=== PATIENT | female | born 1980 | race African-American/Black ===

== ENCOUNTER 2016-08-30 02:31 | Emergency (ER) | payer BC ==
[~2016-08-30] VITALS: Ht 162.6 cm; Wt 106.6 kg
[~2016-08-30 02:31] MED LIST: DROS1TAB PO
[2016-08-30 03:21] LABS: BILIRUBIN,URINE NEGATIVE (NEG); GLUCOSE,URINE NEGATIVE (NEG); NITRITE,URINE NEGATIVE (NEG); PROTEIN,URINE 30 mg/dL (NEG-TRACE)
[2016-08-30 03:43] LABS: BASO % 0 % (0-3); EOS % 0 % (0-3); HEMATOCRIT 36.4 % (36.0-47.0); LYMPH # 1.3 x10^3/uL (1.0-4.8); LYMPH % 10 % (24-48); MEAN CORPUSCULAR HEMOGLOBIN 28 pg (25-35); MEAN CORPUSCULAR HGB CONC 33 g/dL (31-37); MEAN CORPUSCULAR VOLUME 83 fL (79-100); MONO % 5 % (0-9); NEUT % 84 % (31-73); PLATELET COUNT 314 x10^3/uL (140-400); RED BLOOD COUNT 4.36 x10^6/uL (3.50-5.40); RED CELL DISTRIBUTION WIDTH 13.8 % (11.5-14.5); WHITE BLOOD COUNT 12.4 x10^3/uL (4.0-11.0)
[2016-08-30 03:45] LABS: BACTERIA,URINE MANY /HPF (0-FEW); RBC,URINE TNTC /HPF (0-2); SQUAMOUS EPITHELIAL CELL,UR MANY /LPF; WBC,URINE >40 /HPF (0-4)
[2016-08-30 03:49] LABS: GFR 76.3; POTASSIUM 3.5 mmol/L (3.5-5.1)
[2016-08-30 03:55] LABS: ALBUMIN 2.8 g/dL (3.4-5.0); DIRECT BILIRUBIN 0.1 mg/dL (0.0-0.2); TOTAL BILIRUBIN 0.4 mg/dL (0.2-1.0); TOTAL PROTEIN 8.4 g/dL (6.4-8.2)
[2016-08-30] MEDS ORDERED: IBUP200T77 PO (03:55)
[2016-08-30] MEDS ORDERED: ONDA4TAB10 SL (03:55)
[2016-08-30] MEDS ORDERED: OSEL75CA PO (03:55)
--- NOTE | 2016-08-30 03:57 | PHYS DOC ---
Past Medical History Past Medical History: No Pertinent History Past Surgical History: Tubal ligation Additional Past Surgical Histo: breast augmentation. Alcohol Use: Occasionally Drug Use: None Adult General Chief Complaint Chief Complaint: NEAR SYNCOPE HPI HPI 35-year-old female presenting to the emergency department today with sore throat runny nose and cough muscle aches. She also feels lightheaded. This is been present for approximately 24-48 hours. Today she stood up and felt lightheaded. She denies actually losing consciousness. She describes this as "passed out." Otherwise she denies abdominal pain nausea vomiting. Review of systems is negative for chest pain shortness of breath. Positive for cough fevers runny nose and muscle aches. All other review of systems is negative unless otherwise noted in history of present illness. Review of Systems Review of Systems SEE ABOVE. Allergies Allergies Allergies Coded Allergies Type Severity Reaction Last Updated Verified No Known Drug Allergies 07/22/13 No Physical Exam Physical Exam Constitutional: Well developed, well nourished, no acute distress, non-toxic appearance. Well-appearing individual. HENT: Normocephalic, atraumatic, bilateral external ears normal, oropharynx moist, no oral exudates, nose normal. [] Eyes: PERRLA, EOMI, conjunctiva normal, no discharge. Neck: Normal range of motion, no tenderness, supple, no stridor. [] Cardiovascular:Heart rate regular rhythm, no murmur [] Lungs & Thorax: Bilateral breath sounds clear to auscultation . Clear to auscultation bilaterally. Abdomen: Bowel sounds normal, soft, no tenderness, no masses, no pulsatile masses. [] Skin: Warm, dry, no erythema, no rash. Back: No tenderness, no CVA tenderness. [] Extremities: No tenderness, no cyanosis, no clubbing, ROM intact, no edema. Neurologic: Alert and oriented X 3, normal motor function, normal sensory function, no focal deficits noted. [] Psychologic: Affect normal, judgement normal, mood normal. [] Current Patient Data Vital Signs Vital Signs Date Time Temp Pulse Resp B/P Pulse Ox O2 Delivery O2 Flow Rate FiO2 08/30/16 03:15 99.9 109 20 138/76 95 Room Air 99.9 Lab Values Laboratory Tests Test 08/30/16 03:00 08/30/16 03:18 Urine Collection Type Unknown Urine Color Alexandrea Urine Clarity Cloudy Urine pH 6.0 Urine Specific [place] 1.025 Urine Protein 30mg/dL (NEG-TRACE) Urine Glucose (UA) Negativemg/dL (NEG) Urine Ketones (Stick) 15mg/dL (NEG) Urine Blood Large (NEG) Urine Nitrite Negative (NEG) Urine Bilirubin Negative (NEG) Urine Urobilinogen Dipstick 1.0mg/dL (0.2 mg/dL) Urine Leukocyte Esterase Small (NEG) Urine RBC Tntc/HPF (0-2) Urine WBC >40/HPF (0-4) Urine Squamous Epithelial Cells Many/LPF Urine Bacteria Many/HPF (0-FEW) Urine Hyaline Casts Few/HPF POC Urine HCG, Qualitative Hcg negative (Negative) EKG EKG EKG shows sinus rhythm with a mildly tachycardic rate. Normal intervals. Normal axis. ST segments are congruent. Not suggestive of ACS. Reviewed by myself.[] Radiology/Procedures Radiology/Procedures Chest x-ray reviewed by myself shows no obvious infiltrate or pneumothorax present. No obvious acute cardiopulmonary process present.[] Course & Med Decision Making Course & Med Decision Making Pertinent Labs and Imaging studies reviewed. (See chart for details) [] 35-year-old female presenting with cough runny nose muscle aches fevers chills. Temperature mildly elevated with mild tachycardia. Pertinent physical exam findings showed normal lungs on auscultation. Otherwise well-appearing individual. EKG unremarkable. Chest x-ray not suggestive of pneumonia. Leukocytosis on blood work. Urinalysis contaminated. Negative nitrates. We'll follow culture. Chemistry panel otherwise unremarkable. Urine test negative. The patient's clinical symptoms and presentation were suggestive of influenza virus. Given her symptoms started less than 48 hours ago offered treatment. Patient was subsequent discharged home with Tamiflu and ibuprofen to follow-up with her primary care doctor over the next 3-4 days if her symptoms did not improve. Dragon Disclaimer Dragon Disclaimer This electronic medical record was generated, in whole or in part, using a voice recognition dictation system. Departure Departure Impression: Primary Impression: Pre-syncope Additional Impression: Influenza Disposition: HOME, SELF-CARE Condition: STABLE Referrals: UNKNOWN PCP NAME (PCP) HODAN OJEDA MD Patient Instructions: Dizziness, Influenza, Adult Additional Instructions: Thank you for allowing us to participate in your care today. Followup with your primary care physician in 3 days if your symptoms do not improve. If you do not have a primary care provider you can ask for a list of our primary care providers. Return to the emergency department you have any new or concerning findings. This should be evaluated by the primary care physician and any necessary consulting services for continued management within a few days after discharge. Return to emergency room if you have any new or concerning symptoms including but not limited to fever, chills, nausea, vomiting, intractable pain, any new rashes, chest pain, shortness of air, uncontrolled bleeding, difficulty breathing, and/or vision loss. Scripts Ondansetron (Zofran Odt)4 Mg Tab.rapdis1 Tab SL PRN Q8HRS PRN NAUSEA #6 TAB Prov:SULY HODGSON MD 08/30/16 Ibuprofen 200 Mg [id number] Mg PO PRN Q6HRS PRN INFLAMMATION #30 TAB Prov:SULY HODGSON MD 08/30/16 Oseltamivir Phosphate (Tamiflu)75 Mg Capsule1 Cap PO BID #10 CAP Prov:SULY HODGSON MD 08/30/16 Problem Qualifiers SULY HODGSON MD Aug 30, 2016 03:57
[2016-08-30 04:17] VITALS: BP 122/75
--- NOTE | 2016-08-30 06:45 | EKG ---
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
--- NOTE | 2016-08-30 07:43 | RAD ---
EXAM: Chest one view. HISTORY: Cough. COMPARISON: None. FINDINGS: A frontal view of the chest is obtained. There are no confluent infiltrates. There is no pneumothorax or pleural effusion. The heart is not enlarged. IMPRESSION: 1. No confluent infiltrates.
== END 2016-08-30 04:17 | disposition home or self-care (01) ==
LOC: ER 02:31
DX: J11.1 Influenza due to unidentified influenza virus with other respiratory manifestations (principal); R55 Syncope and collapse
CPT/HCPCS: 36415; 71010; 80048; 80076; 81001; 81025; 83690; 85027; 87086; 93005; 99285-25